=== PATIENT | male | born 1970 | race Caucasian/White ===

== ENCOUNTER 2016-08-25 08:09 | Inpatient (IN) | payer MEDICAID ==
[~2016-08-25] VITALS: Ht 198.1 cm; Wt 206.8 kg
--- NOTE | ~2016-08-25 | WND ---
ADMIT: 08/25/2016 RM/LOC: 414 [facility] MR#: [id number] 26[address] [facility] [address] [place] [phone] EDWARD AKHTAR [address] [facility] [place] [address] Wound Care Clinic SEX: M AGE: 46 : 1970 DATE OF VISIT: 08/27/2016 REASON FOR VISIT: Diagnosis of cellulitis to his right lower extremity. HISTORY OF PRESENT ILLNESS: Edward is a 46-year-old male with severe sepsis due to cellulitis, which he developed acute renal failure requiring hemodialysis in the fall of 2015. Edward is well known to Wound Care as he has been seen in 2012 for right plantar foot ulcer secondary to neuropathy and venous insufficiency. 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 Today, Edward tells me that he was admitted to the hospital on Saturday and that he did not have a dressing on his right foot all day yesterday. PAST MEDICAL HISTORY: Gout, history of pneumonia, history of MRSA positive foot ulcer in 2012, history of acute renal failure requiring temporary hemodialysis. FAMILY HISTORY: Significant for melanoma in his mother. Diabetes in his mother. Father and both grandfathers with heart disease. Stroke in his grandfather. SOCIAL HISTORY: Edward is . He currently has a girlfriend. 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 He is currently unemployed. He denies any smoking. He is a social user of alcohol. He denies any illicit drug use. ALLERGIES: No known medication allergies. CURRENT MEDICATIONS: 1. Lovenox. 2. Unasyn. REVIEW OF SYSTEMS: Edward denies any chest pain, shortness of breath, or cough. He denies any fever since admission. He denies chills or body aches. He stated that his pain in his right lower extremity was like shooting needles when he came into the emergency room on Saturday. He stated it was so bad, he almost called the ambulance. PHYSICAL EXAMINATION: GENERAL: Edward is an alert and oriented 46-year-old male, in no acute distress. He is examined in his bed in room 414. VITAL SIGNS: Temperature 97 degrees (highest 101.9 on admission August 25, 2016 at 10:20 a.m.), pulse 79, respirations 16, blood pressure 123/67, and pulse ox 99% on room air. EXTREMITIES: Assessment of his right lower extremity shows some erythema below the knee. They actually have a marker outlining how high it has been, and it appears like it has gotten less since he has been here on antibiotics. He has brawny lymphedema to the right lower extremity. His foot ulcer is on the plantar surface of his right foot and measures 3.5 cm in width x 0.8 cm in length. Periwound skin is callused with dry and has dried blood noted. Wound ADMIT: 08/25/2016 RM/LOC: 414 [facility] MR#: [id number] [address] [place] [phone] EDWARD AKHTAR Justice [address] [place] [address] Wound Care Clinic SEX: M AGE: 46 : 1970 bed is 100% pink. No periwound erythema is noted. He has 1+ pedal pulse. No drainage is noted. ASSESSMENT: 1. Cellulitis, right lower extremity. 2. Chronic right foot ulceration secondary to neuropathy and venous insufficiency. TREATMENT PLAN: The right foot was washed well with soap, rinsed, and patted dry. I then attempted to debride the periwound skin using a #11 scalpel; however, it was very tough due to how dry it was. I applied a Vaseline gauze in an attempt to soften up the periwound skin and told the patient I would return tomorrow to debride it. The patient is amenable to plan of care. I would like to thank Dr. Dueñas for allowing us to participate in his care. Tatiana Rock APRN/ vinny JOB #: [id number] CC: Valentin Dueñas, Attending Physician Valentin Dueñas, Family Physician
[~2016-08-25 08:09] MED LIST: HYDROCODON-ACE1 EAC6 PO; KENALOG 0.1% D454 GM TP; MYCOSTATIN PWD15 GM TP; TEFLARO400 MG IV
--- NOTE | 2016-08-25 12:15 | ER ---
ADMIT: 08/25/2016 RM/LOC: ER [facility] MR#: [id number] [address] [id number] ZAY AKHTAR [address] [place] [address] Emergency Room Report SEX: M AGE: 46 : 1970 DATE: 08/25/2016 This 46-year-old, awoke with chills, rigors, and extreme pain in his right lower extremity. He did have some nausea and one episode of vomiting. He has had a rather complicated course of cellulitis and a stage III ulcer of his right foot as well as lymphedema and had a rather lengthy hospital course for the treatment of the same back in March. He said he had been doing well until this morning as mentioned above, the sudden onset of chills, rigors, and 1 episode of emesis. PAST MEDICAL HISTORY: Significant for chronic foot ulcer, morbid obesity, lymphedema, and neuropathy. SOCIAL HISTORY: Does not smoke. Occasional alcohol. PHYSICAL EXAMINATION: GENERAL: Reveals a morbidly obese gentleman in moderate amount of distress. LUNGS: Clear to auscultation. CARDIOVASCULAR: Rapid. Regular rate and rhythm with no murmurs, rubs, or gallops. ABDOMEN: Morbidly obese, soft, nontender. EXTREMITIES: Again stage III ulcer noted at plantar aspect of the right foot. 4+ edema of the right lower extremity. There is erythema on the medial aspect of his leg and thigh going to the groin. It is warm and tender to palpation. He also has erythema of the right hand, the dorsum there of extending all the way to the wrist. OUTPATIENT PHARMACY MANAGER: No focal findings. I did discuss his care with Dr. Dueñas. We are starting vancomycin in the Emergency Department as soon as lab was drawn. He is to be admitted to the ICU for further management. DIAGNOSIS: At this point is cellulitis. Labs are pending at time of this dictation, however, the patient will be admitted regardless. Vancomycin was started in the Emergency Department. Mannie Lloyd MD/ vinny JOB #: [id number] CC: Mannie Lloyd MD, Attending Physician
--- NOTE | 2016-08-28 09:37 | CO ---
ADMIT: 08/25/2016 RM/LOC: 414 [facility] MR#: [id number] [address] [address] ZAY KNIGHT Justice [address] [facility] [place] [address] Consultation SEX: M AGE: 46 : 1970 DATE OF CONSULTATION: 08/27/2016 ATTENDING PHYSICIAN: Valentin Dueñas CONSULTING PHYSICIAN: Avril Glover MD REASON FOR CONSULT: Right lower extremity cellulitis. Thank you, Dr. Dueñas, for the consult and involving me in this patient's care. HISTORY OF PRESENT ILLNESS: Mr. Knight is a 46-year-old man, well known to me and followed in the Wound Clinic for chronic right foot plantar ulcer. He was last seen by me in the clinic on August 07 and was noted to have cellulitis of the right leg and had prescribed IV ertapenem as an outpatient for 1 week, which he finished 2 weeks back. He did not show up again for his followup appointment. He later presented again to the ER on August 25 with sepsis secondary to right lower extremity cellulitis. His plantar ulcer looks much better in terms of size and may need repeat debridement. He was noted to have fever on admission, associated with chills and he reported worsening redness, swelling, and pain. He was started on vancomycin and Zosyn and today, his leg looks better. He was also noted to have gross hematuria and was referred to Urology Clinic and is awaiting appointment. PAST MEDICAL HISTORY: 1. Acute kidney injury, requiring hemodialysis, currently off hemodialysis. 2. Gout. 3. History of MRSA foot ulcer in 2012. 4. Morbid obesity. FAMILY HISTORY: He is orphan, and does not know anything about his parents. SOCIAL HISTORY: He lives at home. Denies any smoking, alcohol, or recreational drug use. REVIEW OF SYSTEMS: A 10-point review of systems negative except as noted in the HPI. ALLERGIES: NO KNOWN DRUG ALLERGIES. CURRENT MEDICATIONS: 1. Lovenox. 2. Vancomycin 2 g q.12 hours. 3. Zosyn 3.375 g every 8 hours. PHYSICAL EXAMINATION: VITAL SIGNS: Current temperature 97.4, T-max 102.1, heart rate 71, blood pressure 132/82, respirations 20, 97% on room air. GENERAL: No acute distress. HEENT. Head, normocephalic and atraumatic. Extraocular movements intact. NECK/LYMPH: No palpable anterior/posterior cervical or supraclavicular ADMIT: 08/25/2016 RM/LOC: 414 [facility] MR#: [id number] [address] [address] ZAY KNIGHT [address] [place] [address] Consultation SEX: M AGE: 46 : 1970 lymphadenopathy. CHEST: Decreased breath sounds bilaterally. No wheezes, rales, or rhonchi. CARDIOVASCULAR: S1, S2 heard. Regular rate and rhythm. ABDOMEN: Soft, obese, and nontender. MUSCULOSKELETAL: There is 4+ edema in right lower extremity and there is diffuse erythema, which looks better than the prior markings, mildly increased warmth over his right leg, extending to medial thigh. He still has tenderness to palpation. The plantar right foot and plantar ulcer has improved in size from his last clinic appointment. DATA REVIEW: CBC today shows white count of 5.8, hemoglobin 11.6, platelets 129. BMP shows creatinine of 1.0. His ESR is 31; blood cultures, no growth to date. X-ray of the right foot was taken, which showed advanced degenerative change of the midfoot. There is ill-defined cortical invasion and periosteal reaction, possible air within soft tissues distally. ASSESSMENT AND PLAN: 1. Recurrent right lower extremity cellulitis. At this time, I will discontinue Zosyn and vancomycin and narrow antibiotics to Unasyn 3 g IV every 6 hours. His last wound cultures done last month was growing group G Streptococcus. 2. Chronic right leg lymphedema, given the unilateral chronic swelling, I worry about any intraabdominal pathology compressing on the lymphatic system. I would like to get a CT scan of the abdomen and pelvis to rule out any pathology. 3. Chronic right foot plantar ulcer, improving. It will need repeat debridement. 4. Gross hematuria. Renal ultrasound will be limited, given his body habitus and hence, we will do CT of abdomen and pelvis, which is ordered. 5. Morbid obesity. 6. Thrombocytopenia, likely secondary to antibiotics. We will monitor closely. Thank you for the consult and I will continue to follow the patient. Avril Glover MD/ vinny JOB #: [id number] CC: Valentin Dueñas, Attending Physician Valentin Dueñas, Family Physician
[2016-08-29] MEDS ORDERED: VIBRAMYCIN-DPS100 M2 PO (06:07)
[2016-08-29] MEDS ORDERED: AUGMENTIN 250250 MG PO (06:08)
--- NOTE | 2016-08-29 15:33 | DS ---
ADMIT: 08/25/2016 RM/LOC: 414 [facility] MR#: [id number] [address] [address] ZAY AKHTAR [address] [place] [address] [place] [address] Discharge Summary SEX: M AGE: 46 : 1970 ADMISSION DATE: 08/25/2016 DISCHARGE DATE: 08/28/2016 CONSULTATIONS: Infectious disease. FINAL DIAGNOSES: 1. Cellulitis. 2. Chronic kidney disease. 3. Hematuria, resolved. 4. Sepsis. REASON FOR ADMISSION: The patient is a very pleasant, 46-year-old gentleman who presented to the emergency room with increasing swelling, redness and pain severe in his right lower extremity consistent with cellulitis as he has had prior. Admitted for further evaluation and stabilization. HOSPITAL COURSE: The patient was admitted. Placed on broad-spectrum antibiotics. He did quite well with this. Improving nicely. Was seen in consult by Infectious Disease who knows him well. Have been following him as an outpatient. Arrangements were made with his antibiotics to cover him as an outpatient. He will be placed on Augmentin as an outpatient with close followup. DISCHARGE INSTRUCTIONS: He will go to home. Follow up with ID in the next two weeks. Follow up with wound care in clinic. He will do Lasix 40 mg p.o. b.i.d. for 10 days, Augmentin 875 mg p.o. b.i.d. for 14 days as well as hydrocodone 5/325, 1-2 tabs p.o. q.6 hours p.r.n. Valentin Dueñas MD/ vdg JOB #: [id number] CC: Valentin Dueñas MD, Attending Physician Valentin Dueñas MD, Family Physician
--- NOTE | 2016-08-30 21:48 | HP ---
ADMIT: 08/25/2016 RM/LOC: 414 [facility] MR#: [id number] 2620 [facility] [address] [place] [phone] ZAY AKHTAR [address] [facility] [place] [address] History and Physical SEX: M AGE: 46 : 1970 DATE OF SERVICE: 08/25/2016 HISTORY OF PRESENT ILLNESS: This is a 46-year-old male with history of severe sepsis due to cellulitis, which he developed acute renal failure requiring hemodialysis in the fall of 2015, history of MRSA positive foot ulcer in 2012, chronic nonhealing pressure ulcer in 2016 for which he recently was on IV antibiotics. He is admitted today with worsening of cellulitis of his right lower extremity. Reports he was feeling his baseline self yesterday when he went to bed; however, this morning he woke up with intense chills and rigors. He did not take his temperature, but was sure he had fever. Reports decreased appetite, fatigue, and generalized malaise today. Also noted increased heart rate and worsening pain of his right lower extremity. He reports the redness is similar to prior, however, he thinks it might be a little bit worse, but he is unsure if he has not looked at this leg much recently. Reports he missed a couple of his wound care appointments, but had been prescribed Augmentin earlier this month and did a week of ertapenem IV, and he reports his last dose was on August 20. The patient had not been on any antibiotics since. The patient reports his swelling of the leg has been stable and he has noted any discharge or drainage. Reports it is exquisitely tender with palpation. He is unsure what his foot ulcer looks like, but reports, his wound care nurses have told him that it has been getting better. He denies any drainage from that area. Denies shortness of breath, cough, chest pain, nausea, vomiting, sick contacts, trauma, or other lesions to his leg. REVIEW OF SYSTEMS: A complete review of systems was obtained and it was negative except for what is listed above in the HPI. Hospitalized in 2016 for severe sepsis and acute renal failure requiring temporary hemodialysis. Chronic foot ulcer on the plantar aspect of right foot. PAST MEDICAL HISTORY: Gout, history of pneumonia, history of MRSA positive foot ulcer in 2012. FAMILY AND SOCIAL HISTORY: Heart disease, strokes, and diabetes run his family though he does not give specifics on the relatives affected. Does not smoke. Reports social alcohol use. PHYSICAL EXAMINATION: VITAL SIGNS: In the ER are as follows; temperature 101.9 degrees Fahrenheit, pulse 125, respiratory rate 28, oxygen saturation 93%, and blood pressure 147/85. GENERAL APPEARANCE: Alert, oriented, and obese male in no acute distress. Resting comfortably with right extremity elevated on pillow. HEENT: Extraocular movements intact. Pharynx non erythematous and without lesions. Mucous membranes moist. No cervical lymphadenopathy. No scleral icterus. CARDIOVASCULAR: Tachycardia with regular rhythm. No murmurs, rubs, or ADMIT: 08/25/2016 RM/LOC: 414 [facility] MR#: [id number] [address] [place] [phone] ZYA AKHTAR [address] [place] [address] History and Physical SEX: M AGE: 46 : 1970 gallops noted. Peripheral pulses intact in all 4 extremities. RESPIRATORY: Normal rate and effort on my exam. Lung sounds diminished at bases bilaterally, but no wheezes, rhonchi, or crackles noted. GASTROINTESTINAL: Bowel sounds present in all 4 quadrants. Nontender, nondistended, and obese. SKIN: Circumferential intense erythema of right lower leg with erythema and warmth extending up to his groin on the medial aspect of his thigh. Exquisitely tender to palpation. Edema present, but unable to express for pitting as the patient did not tolerate palpation. Roughly 3 cm ulcer on the plantar aspect of his right foot. No discharge noted. No tenderness around the lesion and no redness present immediately around his ulceration. No other rashes or lesions noted on skin. NEURO: No focal deficits. Moving all 4 extremities. Diminished sensation to touch on bilateral feet. LABORATORY DATA: Relevant labs include white blood cell count of 13.2, lactic acid 1.6, creatinine 1.2 (baseline 1.1 to 1.2). INR 1.01. LFTs within normal limits. ASSESSMENT AND PLAN: This 46-year-old male with history of gout and past episode of severe cellulitis requiring prolonged antibiotic therapy and leading to acute renal failure requiring temporary hemodialysis, chronic foot ulcer, who is admitted for sepsis, secondary to cellulitis of his right lower extremity. 1. Sepsis due to right lower extremity cellulitis. a. Redness outlines around 9:30 a.m. on 08/25/2016 in ER. b. The patient already received 1 liter plus fluid bolus in ER, we will continue with another 2 liter fluid bolus and run normal saline at 150 mL and now or thereafter. c. Continue vancomycin and Zosyn with pharmacy assistance with dosing. d. Blood cultures are pending. e. Oxycodone for pain control p.r.n. ADMIT: 08/25/2016 RM/LOC: 414 [facility] MR#: [id number] [address] [place] [id number] ZAY AKHTAR [address] [place] [address] History and Physical SEX: M AGE: 46 : 1970 f. Consult ID on Saturday. g. Continue p.r.n. Tylenol for fevers and pain. 2. Chronic foot ulcer on right foot. a. We will check x-ray and CRP and ESR to evaluate for possible osteomyelitis. b. We will continue antibiotics as listed above. c. We will consult wound care. d. The patient to keep right extremity elevated while in bed. 3. Chronic kidney disease. a. Creatinine 1.2 today and recent baseline has actually been 1.1 to 1.2. b. We will monitor. Negra Watson MD / Valentin Dueñas MD / vinny JOB #: [id number] CC: Valentin Dueñas, Attending Physician Valentin Dueñas, Family Physician
== END 2016-08-28 13:44 | disposition home or self-care (01) | DRG 872 ==
LOC: ER 08:09 → 4PCU 08:30
PROVIDERS: ADMIT Internal Medicine
PROC: 0HDMXZZ Extraction of Right Foot Skin, External Approach (ICD-10-PCS; principal; 2016-08-28)
DX: A41.9 Sepsis, unspecified organism (principal); D69.6 Thrombocytopenia, unspecified; Z68.43 Body mass index [BMI] 50.0-59.9, adult; E66.01 Morbid (severe) obesity due to excess calories; L97.519 Non-pressure chronic ulcer of other part of right foot with unspecified severity; L03.115 Cellulitis of right lower limb; I89.0 Lymphedema, not elsewhere classified; N18.9 Chronic kidney disease, unspecified; Z86.14 Personal history of Methicillin resistant Staphylococcus aureus infection; R31.0 Gross hematuria

== ENCOUNTER 2016-10-13 12:26 | Inpatient (IN) | payer MEDICAID ==
[~2016-10-13] VITALS: Ht 198.1 cm; Wt 212.3 kg
--- NOTE | ~2016-10-13 | WND ---
ADMIT: 10/13/2016 RM/LOC: 402 [facility] MR#: [id number] [address] [phone] EDWARD AKHTAR [address] [facility] [place] [address] Wound Care Clinic SEX: M AGE: 46 : 1970 DATE OF VISIT: 10/15/2016 TIME OF VISIT: 30 minutes. HISTORY OF PRESENT ILLNESS: Edward is a 46-year-old male, who was admitted on October 13, 2016 for leg pain and redness. Wound Care was consulted regarding an ulcer that he has on the plantar surface of his right foot. Wound Care has been involved with Edward's care since April 13, 2016. At that time, he reported that the wound to the plantar foot was chronic. He had even been seen as early as August 19, 2012 for the same wound. Last time he was seen by wound care was September 06, [address] Glover. At which time, the wound was almost completely resolved. At that time, the measurements were 0.6 cm in length x 3.5 cm in width x 0.5 cm in depth. He had undermining at 11 o'clock to 1 o'clock of 0.4. At that time, the current treatment was TheraBond dressing to the wound bed changed every day. He reports he has ran out TheraBond and Medihoney and has just been dressing it with some antibiotic ointment. He reports that his right leg cellulitis has gotten significantly better since his day of admission on IV Zosyn and vancomycin. He is hoping to go home tomorrow. When he is discharged, he will be discharged home on 12 weeks of doxycycline. PAST MEDICAL HISTORY: Recurrent cellulitis, lymphedema, morbid obesity, history of MRSA and the foot ulcer in 2012, and history of gout. FAMILY HISTORY: Significant for heart disease, strokes, and diabetes. SOCIAL HISTORY: He denies tobacco or illicit drug use. Occasionally, he consumes alcohol. 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 CURRENT ALLERGIES: No known medication allergies. MEDICATIONS: 1. Vancomycin. 2. Zosyn. PHYSICAL EXAMINATION: VITAL SIGNS: Temperature today is 96.9, it has been as high as 100.6 on 10/14/2016, pulse is 75, respirations 18, blood pressure 138/74, and pulse ox 96 on room air. GENERAL: Assessment reveals an alert and oriented 46-year-old male, in no acute distress. EXTREMITIES: Assessment of his right lower extremity shows cellulitis extending slightly above his knee; however, there is a black magic marker line significantly higher than where the cellulitis appears to be today. On the plantar surface of his right foot, he has a full-thickness wound that measures 1.6 cm in length x 3.8 cm in width x 0.5 cm in depth. There is periwound callus that extends to make the wound and the callus 2.5 cm in length x 4.8 cm in width. Circumferential measurements 32 cm at the foot, 39 at the ankle, and 56 at the calf. He has 2+ pedal pulse. He has 1+ pitting edema. Wound bed is 100% granulated. No periwound erythema is noted. ADMIT: 10/13/2016 RM/LOC: 402 [facility] MR#: [id number] [address] [place], [place] [id number] EDWARD AKHTAR [address] [place] [address] Wound Care Clinic SEX: M AGE: 46 : 1970 ASSESSMENT: 1. Cellulitis. 2. Chronic right foot plantar ulcer secondary to neuropathy. PLAN: Edward will have his foot cleansed with antimicrobial soap and water. We will apply Medihoney to the wound bed and secure it and a gauze cover dressing and secure with Josie and Coban. This will be changed daily. We would like Edward to follow up with us in the outpatient clinic on discharge. After washing his foot with warm soapy water rinsing and patting dry, I used #11 blade and paired down the periwound callus. The patient tolerated the procedure well. No bleeding was noted. It did not change the measurements of the wound. I would like to thank Dr. Dueñas for allowing us to participate in Edward's care. Tatiana Rock APRN/ vinny JOB #: [id number] CC: Valentin Dueñas, Attending Physician Valentin Dueñas, Family Physician
[~2016-10-13 12:26] MED LIST changes: +AUGMENTIN 250250 MG PO; +VIBRAMYCIN-DPS100 M2 PO
--- NOTE | 2016-10-16 10:18 | HP ---
ADMIT: 10/13/2016 RM/LOC: 402 [facility] MR#: [id number] [id number] [place], [place] [address] ZAY AKHTAR [address] [facility] [address] History and Physical SEX: M AGE: 46 : 1970 DATE OF SERVICE: CHIEF COMPLAINT: Leg pain and redness. HISTORY OF PRESENT ILLNESS: The patient is a pleasant 46-year-old gentleman, known to me from prior admissions, who has increasing redness in his right lower extremity. It started really abruptly at about 2:00 a.m. He took his last dose of Augmentin, he had been on for an extended course the day prior. He reports fevers, some nausea. No vomiting, no shortness of breath, no chest pain. He had been following up with Infectious Disease. His pain and redness extend up into his upper thigh even. PAST MEDICAL HISTORY: 1. Recurrent cellulitis. 2. Lymphedema. 3. Morbid obesity. 4. History of MRSA in the foot ulcer in 2012. 5. History of gout. FAMILY HISTORY: Significant for heart disease, strokes, and diabetes. SOCIAL HISTORY: Nonsmoker. 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 Occasional alcohol use. PHYSICAL EXAMINATION: VITAL SIGNS: In the ER, respiratory rate 22, pulse 111, blood pressure 147/97, temperature initially was 102.7. GENERAL: He is alert and oriented x3, in no acute distress, pleasant. HEENT: Normocephalic, atraumatic. Pupils are equal bilaterally. No icterus. Dry mucous membranes. NECK: No lymphadenopathy. Soft and supple. Trachea midline. LUNGS: Clear to auscultation bilaterally. No wheezes, rales, or rhonchi. HEART: Regular rate and rhythm. No murmurs, rubs, or gallops. ABDOMEN: Soft, nontender, nondistended. Bowel sounds present. EXTREMITIES: No cyanosis. He has 1 to 2+ pitting edema in the right lower extremity, much worse in the left. He has erythema extending almost circumferentially entirely up to the knee and then just on the medial aspect of the thigh up to the upper thigh, very tender, indurated, warm. No purulent drainage. He has an open wound with dressing intact on his right lower foot. NEUROLOGICAL: No focal deficits noted. Cranial nerves II through XII grossly intact. LABORATORY AND X-RAY DATA: His creatinine is 1.4, BUN 15, mag 1.6. White count 17,000, hemoglobin 13.2, sodium 131, lactic acid 1.7. UA is negative. ADMIT: 10/13/2016 RM/LOC: 402 [facility] MR#: [id number] [address] [place] [id number] ZAY AKHTAR [address] [place] [address] History and Physical SEX: M AGE: 46 : 1970 Chest x-ray is negative. ASSESSMENT: 1. Cellulitis, extensive. 2. Early sepsis. 3. Chronic kidney disease, stage 3. PLAN: At this point in time, we will do IV antibiotics. We will cover him for broad-spectrum coverage with vancomycin and Zosyn. I wonder if he will need some long-term doxycycline as an outpatient prophylactically until his lymphedema is better. We will have Wound Care see him when they are available. The patient is agreeable with plan. Pain control. Valentin Dueñas MD/ vinny JOB #: [id number] CC: Valentin Dueñas, Attending Physician Valentin Dueñas, Family Physician
--- NOTE | 2016-10-18 16:16 | ER ---
ADMIT: 10/13/2016 RM/LOC: 402 [facility] MR#: [id number] [address] [facility] [address] [place], [place] [address] ZAY AKHTAR [address] [facility] [place] [address] Emergency Room Report SEX: M AGE: 46 : 1970 DATE: 10/13/2016 ADDENDUM: CHIEF COMPLAINT: Red swollen leg. HISTORY OF PRESENT ILLNESS: This is a 46-year-old male, who has a history of recurrent cellulitis to his right leg. He also has had this chronic wound on the bottom of his foot. PAST MEDICAL HISTORY: History of again recurrent cellulitis to the right lower leg with a wound, kidney failure or acute renal failure in a previous hospital stay. MEDICATIONS: Please see nurse's note. ALLERGIES: NO KNOWN ALLERGIES. SOCIAL HISTORY: Denies any tobacco, drug, or alcohol use. FAMILY HISTORY: Noncontributory. REVIEW OF SYSTEMS: CONSTITUTIONAL: Does have a fever, a temp of a 102.7. Has had some chills and sweats. CARDIOVASCULAR AND RESPIRATORY: Denies any chest pain or shortness of breath. GI AND : Denies any nausea, vomiting, or diarrhea. MUSCULOSKELETAL: Main complaint is that right leg is very tender to touch and warm. All systems otherwise negative. PHYSICAL EXAMINATION: VITAL SIGNS: Blood pressure is 111/66; pulse is 128; respirations 22; temperature is a 102.7, tympanic; and saturation of oxygen is 100% on room air. GENERAL APPEARANCE: He is in mild distress, but alert. HEENT: Pharynx is moist with no tonsillar swelling or exudate. TMs are non- erythemic bilateral. HEART: Tachycardic. LUNGS: Decreased bilateral, but no wheezes, rales, or rhonchi. ABDOMEN: Soft and nontender. He is obese. SKIN: Normal color, warm, and dry except for right leg gets very erythemic and warm from the lower leg extending into the thigh. NEURO AND PSYCH: He is alert and oriented x3. Mood and affect normal. EXTREMITIES: Again, the right leg is chronically swollen, erythemic, and warm at this time. Tender to palpation from the calf up into the thigh. COURSE IN THE EMERGENCY ROOM: Sepsis protocol was ordered. Lab findings: ADMIT: 10/13/2016 RM/LOC: 402 [facility] MR#: [id number] [address] [address] ZAY AKHTAR [address] [place] [address] Emergency Room Report SEX: M AGE: 46 : 1970 His PT/INR normal. His CBC shows a white count of 17.5, hemoglobin 13.2, and platelets 195. PH is 7.551, pCO2 was 27.6, PO2 is 122.0. His lactic acid is 1.7. CMP is normal except for sodium of 131, glucose 106, his creatinine 1.4, inorganic phosphorus 1.6, albumin low at 3.3, and magnesium 1.6. Chest x-ray, no acute findings. Both Zosyn and vancomycin have been started down here in the emergency room. He was given 1 L of fluids, now going at 100 an hour. His blood pressures have not below [address] Dueñas was called at 1528 hours, will admit the patient. IMPRESSION: 1. Cellulitis to the right leg. 2. Ulcer wound to the right foot. THOMPSON Navarro / Parish Rg MD / modl JOB #: [id number] CC: Valentin Dueñas MD, Attending Physician Valentin Dueñas MD, Family Physician
--- NOTE | 2016-10-19 17:31 | DS ---
ADMIT: 10/13/2016 RM/LOC: 402 [facility] MR#: [id number] [address] [address] ZAY AKHTAR [address] [facility] [address] Discharge Summary SEX: M AGE: 46 : 1970 ADMISSION DATE: 10/13/2016 DISCHARGE DATE: 10/16/2016 CONSULTATIONS: None. PROCEDURES: None. FINAL DIAGNOSES: 1. Severe cellulitis. 2. Chronic kidney disease, stage III. REASON FOR ADMISSION: The patient is a very pleasant, 46-year-old gentleman who presented to the emergency room with abrupt onset of increasing pain, redness, swelling in his right lower extremity. Has chronic lymph edema down there. Had severe cellulitis. Admitted for further stabilization. HOSPITAL COURSE: The patient is admitted. Placed on broad-spectrum antibiotics. Very slowly but surely improved with this. [place] safe and stable for discharge to home. Tolerated pain on oral pain medications. DISCHARGE INSTRUCTIONS: He will discharge to home. He will be on: 1. Doxycycline 100 mg p.o. b.i.d. for 120 days. 2. Keflex 500 mg p.o. b.i.d. for 14 days. 3. Hydrocodone p.r.n. Please see list for full details. He will follow up with me within the month. Valentin Dueñas MD/ narda JOB #: [id number] CC: Valentin Dueñas MD, Attending Physician Valentin Dueñas MD, Family Physician
== END 2016-10-16 10:59 | disposition home or self-care (01) | DRG 871 ==
LOC: ER 12:26 → 4PCU 15:28
PROVIDERS: ADMIT Internal Medicine
DX: A41.9 Sepsis, unspecified organism (principal); L89.893 Pressure ulcer of other site, stage 3; N18.3 Chronic kidney disease, stage 3 (moderate); Z68.43 Body mass index [BMI] 50.0-59.9, adult; L03.115 Cellulitis of right lower limb; E66.01 Morbid (severe) obesity due to excess calories; E87.6 Hypokalemia; Z86.14 Personal history of Methicillin resistant Staphylococcus aureus infection